=== PATIENT | male | born 2000 ===

== ENCOUNTER 2020-04-01 10:02 | Emergency (ER) | payer MEDICAID ==
[~2020-04-01] VITALS: Ht 188 cm; Wt 68.3 kg
--- NOTE | 2020-04-01 10:21 | NUR ---
SITTER 1:1, NO ACUTE S/S OF DISTRESS. PT BELONGINGS SECURED. PT REFUSES GOWN BUT REMAINS IN SCRUB PANTS AND T-SHIRT (FCI ATTIRE)
[2020-04-01] MEDS ORDERED: LORazepam 1MG TABLET ONE ×2 (10:40→15:19)
[2020-04-01] MEDS ORDERED: HALOPERIDOL 5 MG/ML IM ONE (11:00)
[2020-04-01] MEDS ORDERED: LORazepam 1MG TABLET PO ONE ×2 (11:00)
[2020-04-01] MEDS ORDERED: HALOPERIDOL 5 MG/ML ONE (11:01)
[2020-04-01 11:02] LABS: ALANINE AMINOTRANSFERASE 82 U/L (12-78); ALBUMIN 4.6 g/dL (3.4-5.0); ANION GAP 10 mmol/L (5-15); CALCIUM 9.1 mg/dL (8.5-10.1); CHLORIDE 105 mmol/L (98-107); CREATININE 0.96 mg/dL (0.7-1.3); SALICYLATE LEVEL 2.5 mg/dL (2.8-20.0)
--- NOTE | 2020-04-01 11:03 | NUR ---
PT REPEATEDLY NEED REORIENTATION AND ESCORT BACK TO ROOM MULTIPLE TIMES. 1:1 SITTER PRESENT.
[2020-04-01 11:04] LABS: ALKALINE PHOSPHATASE 66 U/L (45-117); BILIRUBIN,TOTAL 1.4 mg/dL (0.2-1.0); TOTAL PROTEIN 8.6 g/dL (6.4-8.2)
[2020-04-01 11:05] LABS: BASOPHILS # (AUTO) 0.02 x10^3/uL (0-0.3); BASOPHILS % (AUTO) 0 % (0-1); EOSINOPHILS # (AUTO) 0.03 x10^3/uL (0-0.8); EOSINOPHILS % (AUTO) 0 % (1-7); LYMPHOCYTES # (AUTO) 2.05 x10^3/uL (1-6.1); LYMPHOCYTES % (AUTO) 25 % (22-44); MD NO; MEAN CORPUSCULAR HEMOGLOBIN 32.2 pg (27.5-34.5); MEAN CORPUSCULAR HGB CONC 33.5 g/dL (33.2-36.2); MEAN PLATELET VOLUME 7.2 fL (7.4-10.4); MONOCYTES # (AUTO) 0.59 x10^3/uL (0-1.4); MONOCYTES % (AUTO) 7 % (2-9); NEUTROPHILS # (AUTO) 5.48 x10^3/uL (1.8-8.0); NEUTROPHILS % (AUTO) 67 % (42-75); PLATELET COUNT 263 x10^3/uL (130-400); RED BLOOD COUNT 4.86 x10^6/uL (4.38-5.82); RED CELL DISTRIBUTION WIDTH 13.5 % (9.4-14.8)
--- NOTE | 2020-04-01 12:47 | NUR ---
CARD. 5 LEAD, B/P, SPO2 MONITORS IN PLACE
--- NOTE | 2020-04-01 12:47 | NUR ---
PT SLEEPING IN GURNEY. AROUSES TO VERBAL STIMULI. NO ACUTE S/S OF DISTRESS. DENIES NEEDS AT THIS TIME.
--- NOTE | 2020-04-01 13:05 | NUR ---
pt denies ability to produce ua at this time
--- NOTE | 2020-04-01 14:58 | NUR ---
PSYCH EVAL IN PROGRESS WITH BONNIE
[2020-04-01] MEDS ORDERED: LORazepam 2 MG/ML, 1ML IM PRN (15:00)
[2020-04-01] MEDS ORDERED: DIPHENHYDRAMINE 50 MG/ML, 1ML IM PRN (15:00)
[2020-04-01] MEDS ORDERED: HALOPERIDOL 5 MG/ML IM PRN (15:00)
[2020-04-01] MEDS ORDERED: HALOPERIDOL 5 MG TABLET ONE (15:19)
[2020-04-01] MEDS ORDERED: DIPHENHYDRAMINE 50 MG CAPSULE ONE (15:19)
[2020-04-01] MEDS: LORazepam 1MG TABLET PO PRN (15:27)
[2020-04-01] MEDS: DIPHENHYDRAMINE 50 MG CAPSULE PO PRN (15:27)
[2020-04-01] MEDS: HALOPERIDOL 5 MG TABLET PO PRN (15:27)
--- NOTE | 2020-04-01 15:29 | NUR ---
PT WANDERING IN HALLWAY, INTERMITTENT CRYING. INAPPROPRIATE TO ENVIRONMENT AND SITUATION. PT ESCORTED TO ROOM 3. CLOTHING REMOVED AND PT PLACED IN GOWN. ROOM SECURED. SITTER MONITORING FROM HALLWAY
--- NOTE | 2020-04-01 17:28 | NUR ---
ATTEMPTED TO COLLECT UA AT THIS TIME. PT UNABLE
--- NOTE | 2020-04-01 17:56 | NUR ---
PT RECEIVED MEAL TRAY AND WATER X2, DENIES FURTHER NEEDS AT THIS TIME
--- NOTE | 2020-04-01 19:00 | NUR ---
PATIENT RESTING IN BED, NO NOTED NEEDS AT THIS TIME. WILL CONTINUE TO MONITOR. SITTER WITHIN VIEW OF PATIENT.
--- NOTE | 2020-04-01 20:00 | NUR ---
PATIENT RESTING IN BED, EVEN UNLABORED RESPIRATIONS, NO NOTED ACUTE DISTRESS. TOLERATING INTERVENTIONS WELL. SITTER WITHIN VIEW OF PATIENT. WILL CONTINUE TO MONITOR.
--- NOTE | 2020-04-01 21:00 | NUR ---
PATIENT RESTING IN BED, EVEN UNLABORED RESPIRATIONS, NO NOTED ACUTE DISTRESS. TOLERATING INTERVENTIONS WELL. SITTER WITHIN VIEW OF PATIENT. WILL CONTINUE TO MONITOR.
--- NOTE | 2020-04-01 22:00 | NUR ---
PATIENT RESTING IN BED, EVEN UNLABORED RESPIRATIONS, NO NOTED ACUTE DISTRESS. TOLERATING INTERVENTIONS WELL. SITTER WITHIN VIEW OF PATIENT. WILL CONTINUE TO MONITOR.
--- NOTE | 2020-04-01 23:00 | NUR ---
PATIENT RESTING IN BED, EVEN UNLABORED RESPIRATIONS, NO NOTED ACUTE DISTRESS. TOLERATING INTERVENTIONS WELL. SITTER WITHIN VIEW OF PATIENT. WILL CONTINUE TO MONITOR.
--- NOTE | 2020-04-02 01:11 | NUR ---
PATIENT RESTING IN BED, EVEN-UNLABORED RESPIRATIONS NOTED. SITTER IN VIEW OF PATIENT. WILL CONTINUE TO MONITOR.
--- NOTE | 2020-04-02 03:30 | NUR ---
PATIENT AWAKE IN ROOM. NO NOTED NEEDS AT THIS TIME. SITTER WITHIN VIEW OF PATIENT. WILL CONTINUE TO MONITOR.
--- NOTE | 2020-04-02 04:45 | NUR ---
PATIENT RESTING IN ROOM, EVEN UNLABORED RESPIRATIONS NOTED. NO NOTED NEEDS AT THIS TIME. SITTER WITHIN VIEW OF PATIENT.
--- NOTE | 2020-04-02 06:06 | NUR ---
PATIENT UP TO RESTROOM, GIVEN INSTRUCTIONS TO GIVE URINE SPECIMEN. NO URINE SPECIMEN COLLECTED.
[2020-04-02] MEDS ORDERED: LORazepam 2 MG/ML, 1ML ONE ×2 (06:27→13:50)
[2020-04-02] MEDS ORDERED: ZIPRASIDONE 20 MG INJ IM ONE ×2 (06:27→06:30)
[2020-04-02] MEDS ORDERED: LORazepam 2 MG/ML, 1ML IM ONE (06:30)
--- NOTE | 2020-04-02 06:34 | NUR ---
PATIENT BECOMING IRRATIONAL AND UNCONTROLLABLE. PATIENT CAN NOT BE RE-DIRECTED. ORDER FROM MD TO GIVE 2MG ATIVAN IM, 10MG GEODON IM.
--- NOTE | 2020-04-02 06:57 | NUR ---
REPORT GIVEN TO DONALD GONZALEZ.
--- NOTE | 2020-04-02 07:05 | NUR ---
REPORT RECEIVED FROM KASIA BENNETT.
--- NOTE | 2020-04-02 07:05 | NUR ---
DIET TRAY ORDERED AT THIS TIME.
--- NOTE | 2020-04-02 08:08 | NUR ---
pt sleeping in [facility]. resps even and unlabored. sitter monitoring from hallway for safety. room remains secure.
--- NOTE | 2020-04-02 08:12 | NUR ---
diet tray provided at this time.
--- NOTE | 2020-04-02 09:04 | NUR ---
pt sleeping in [facility]. resps even and unlabored. sitter monitoring from hallway for safety. room remains secure.
--- NOTE | 2020-04-02 10:18 | NUR ---
pt sleeping in [facility]. resps even and unlabored. sitter monitoring from hallway for safety. room remains secure.
--- NOTE | 2020-04-02 11:03 | NUR ---
DIET TRAY ORDERED AT THIS TIME.
--- NOTE | 2020-04-02 11:34 | NUR ---
DEVELOPMENT WRITER PSYCH AT BEDSIDE TO RE-EVALUATE AT THIS TIME.
--- NOTE | 2020-04-02 12:19 | NUR ---
MEAL TRAY PROVIDED AT THIS TIME.
--- NOTE | 2020-04-02 12:27 | NUR ---
PT STILL SLEEPING IN [facility]. RESPS EVEN AND UNLABORED. SITTER MONITORING FROM HALLWAY FOR SAFETY. ROOM REMAINS SECURE.
--- NOTE | 2020-04-02 12:52 | NUR ---
PT AMB TO BR WITH STEADY GAIT. PT PROVIDED URINE SAMPLE AT THIS TIME. UA SENT.
--- NOTE | 2020-04-02 13:03 | NUR ---
TASK RN NOTE: PT SITTING BACK IN BED. MEAL TRAY AT BEDSIDE. NAD NOTED AT THIS TIME. SITTER OUTSIDE OF ROOM FOR DIRECT OBSERVATION AND Q15 MIN SAFETY CHECKS. UA IN LAB, AWAITING RESULTS.
[2020-04-02 13:15] VITALS: BP 117/65
[2020-04-02 13:18] LABS: MICROSCOPIC NOT IND
[2020-04-02 13:29] LABS: AMPHETAMINE SCREEN, URINE Negative (Negative); BARBITURATE SCREEN, URINE Negative (Negative); BENZODIAZEPINE SCREEN, URINE Negative (Negative); CANNABINOID SCREEN, URINE Positive (Negative); COCAINE SCREEN, URINE Negative (Negative); METHADONE SCREEN, URINE Negative (Negative); OPIATE SCREEN, URINE Negative (Negative)
[2020-04-02] MEDS ORDERED: HALOPERIDOL 5 MG/ML ONE (13:49)
--- NOTE | 2020-04-02 13:57 | NUR ---
PT AGITATED SUDDENLY AT THIS TIME. PT IS NOT COOPERATIVE. SECURITY PAGED. 2 POINTS(R HAND AND L LEG) RESTRAINTS APPLIED BY SECURITY.
--- NOTE | 2020-04-02 13:58 | NUR ---
PT MEDICATED PER EMAR FOR AGITATION AT THIS TIME. PT TOLERATED WELL.
--- NOTE | 2020-04-02 14:49 | NUR ---
PT STILL SLEEPING IN [facility]. RESPS EVEN AND UNLABORED. SITTER MONITORING FROM HALLWAY FOR SAFETY. ROOM REMAINS SECURE.
--- NOTE | 2020-04-02 15:41 | NUR ---
PT STILL SLEEPING IN [facility]. RESPS EVEN AND UNLABORED. SITTER MONITORING FROM HALLWAY FOR SAFETY. ROOM REMAINS SECURE.
--- NOTE | 2020-04-02 16:33 | NUR ---
PT IS COOPERATIVE AND CALM AT THIS TIME. 2 POINTS RESTRAINTS WERE REMOVED BY SECURITY AT THIS TIME. SITTER MONITORING FROM HALLWAY FOR SAFETY. ROOM REMAINS SECURE.
--- NOTE | 2020-04-02 17:04 | NUR ---
DIET TRAY ORDERED AT THIS TIME.
--- NOTE | 2020-04-02 18:03 | NUR ---
DIET TRAY PROVIDED AT THIS TIME.
--- NOTE | 2020-04-02 18:21 | NUR ---
PT AMB TO BR WITH STEADY GAIT.
--- NOTE | 2020-04-02 18:29 | NUR ---
PT AGITATED AGAIN AND STATED "DO YOU WANNA FIGHT?". PT IS NOT COOPERATIVE AND PT DIDN'T GO BACK TO BED. SECURITY CALLED AND PUT 2 RESTRAINTS AT THIS TIME.
--- NOTE | 2020-04-02 18:53 | NUR ---
REPORT GIVEN TO VIDHYA BENNETT.
--- NOTE | 2020-04-02 18:56 | NUR ---
REPORT FROM LISA BENNETT, SAFETY ROOM PRECAUTIONS IN PLACE, SITTER AT DOOR FOR SAFETY MONITORING
[2020-04-02] MEDS ORDERED: LORazepam 1MG TABLET ONE (19:42)
[2020-04-02] MEDS: LORazepam 1MG TABLET PO PRN (19:47)
--- NOTE | 2020-04-02 19:48 | NUR ---
PT MEDICATED PER MAR. PT REMAINS RESTLESS AT TIMES. SITTER AT DOORWAY FOR SAFETY MONITORING.
--- NOTE | 2020-04-02 20:31 | NUR ---
WATER PROVIDED TO PT, PT WALKED TO BATHROOM. PT IS TEARFUL, CONTINUES TO EXPRESS FLIGHT OF IDEAS. SITTER AT DOORWAY FOR SAFETY MONITORING.
[2020-04-02] MEDS ORDERED: HALOPERIDOL 5 MG TABLET ONE (20:38)
[2020-04-02] MEDS ORDERED: DIPHENHYDRAMINE 50 MG CAPSULE ONE (20:38)
[2020-04-02] MEDS: DIPHENHYDRAMINE 50 MG CAPSULE PO PRN (20:41)
[2020-04-02] MEDS: HALOPERIDOL 5 MG TABLET PO PRN (20:41)
--- NOTE | 2020-04-02 20:42 | NUR ---
PT MEDICATED PER NACHO, PT COOPERATIVE DURING TRADE MANAGER.
--- NOTE | 2020-04-02 20:42 | NUR ---
TP RN: [facility] UNABLE TO TAKE PT D/T STAFFING. PACKET FAXED TO [facility], [facility], AND [facility] WITH CONFIRMATION
--- NOTE | 2020-04-02 20:58 | NUR ---
[facility] CALLED AND RECEIVED REPORT ON PT. THEY WILL BE ACCEPTING PT AT 2200. ACCEPTING MD IS Ella CRAFT.
--- NOTE | 2020-04-02 20:58 | NUR ---
SPOKE WITH ALISHA AT [facility], PER ALISHA ACCEPTING MD IS Ella CRAFT, CAN TRANSFER PT AT 2200 TONIGHT. UPDATED THROUGHPUT DONALD.
--- NOTE | 2020-04-02 21:27 | NUR ---
NAMAN RN: TRANSPORT TO [facility] COORDINATED AND APPROVED BY [facility] AT [facility]. [facility]SPORT CONFIRMED WITH DISPATCH.
--- NOTE | 2020-04-02 21:33 | NUR ---
PT SLEEPING IN NAD, EVEN AND UNLABORED RESPIRATIONS. SITTER AT DOOR.
--- NOTE | 2020-04-02 23:08 | NUR ---
SLEEPING NAD NOTED, EVEN AND UNLABORED RESPIRATIONS. SITTER CONTINUES TO MONITOR.
--- NOTE | 2020-04-02 23:42 | NUR ---
TRANSFERRED TO [facility] BY [facility].
== END 2020-04-02 23:44 ==
LOC: ED 04-02 13:52
DX: F29 Unspecified psychosis not due to a substance or known physiological condition (principal)
CPT/HCPCS: 36415; 80053; 80307; 81003; 85025; 96372; 99285; J1630; J2060; J3486